=== PATIENT | female | born 1990 | race Caucasian/White ===

== ENCOUNTER 2017-06-06 13:32 | Emergency (ER) | payer OTHER ==
[~2017-06-06] VITALS: Ht 170.2 cm; Wt 104.3 kg
[2017-06-06 13:58] VITALS: BP 137/78
--- NOTE | 2017-06-06 14:12 | NUR ---
Patient was taken to bed 04 via wheelchair per tech
--- NOTE | 2017-06-06 14:15 | NUR ---
26F BIB FAMILY C/O LEFT FOOT PAIN, THROBBING, RADIATES TO LEFT KNEE, 8/10 X YESTERDAY; PT STATES " I RAN A MARATHON YESTERDAY, AND I FELL 4 WEEKS AGO. I THINK THE MARATHON AGGRAVATED THE INJURY"; MILD ERYTHEMA AND MILD SWELLING NOTED TO SITE AT THIS TIME; LEFT PEDAL PULSE PALPABLE, LEFT CAP REFILL < 2 SECONDS, NO LOSS OF SENSATION TO LEFT FOOT AT THIS TIME; PT AA&0X4, PERRLA, BL LUNG SOUNDS CLEAR, RR EVEN/UNLABORED, SKIN IS WARM/DRY/INTACT AT THIS TIME; PT STATES NO N/V/D AT THIS TIME; PT RESTING IN BED WITH HOB ELEVATED AND IN LOWEST POSITION; POSITIONED FOR COMFORT; ER MD MADE AWARE OF STATUS. WILL CONTINUE TO MONITOR.
--- NOTE | 2017-06-06 14:39 | NUR ---
Dr. Hobson evaluating patient at bedside.
--- NOTE | 2017-06-06 14:44 | NUR ---
XRAY AT BEDSIDE.
[2017-06-06] MEDS ORDERED: IBUPROFEN 800 MG TAB PO ONE (15:10)
--- NOTE | 2017-06-06 15:35 | NUR ---
Patient discharged with v/s stable. Written and verbal after care instructions given and explained. Patient verbalized understanding. Ambulatory with steady gait. All questions addressed prior to discharge. Advised to follow up with PMD.
[2017-06-06 15:38] VITALS: BP 106/69
== END 2017-06-06 15:35 | disposition home or self-care (01) ==
LOC: MED 13:32
DX: S93.602A Unspecified sprain of left foot, initial encounter (principal); J45.909 Unspecified asthma, uncomplicated; W18.49XA Other slipping, tripping and stumbling without falling, initial encounter; Y93.89 Activity, other specified; Y92.89 Other specified places as the place of occurrence of the external cause; Y99.8 Other external cause status
CPT/HCPCS: 73630; 99284